=== PATIENT | male | born 1975 | race Caucasian/White ===

== ENCOUNTER 2021-03-04 22:48 | Inpatient (IN) | payer BC ==
[~2021-03-04] VITALS: Ht 177.8 cm; Wt 65.8 kg
[2021-03-04] MEDS ORDERED: LORAZEPAM 2 MG/1 ML VIAL ONE ×2 (23:11→23:43)
[2021-03-04] MEDS ORDERED: IV NORMAL SALINE 1000 ML BAG IV ONE (23:15)
[2021-03-04] MEDS ORDERED: LORAZEPAM 2 MG/1 ML VIAL IV ONE ×2 (23:15→23:30)
[2021-03-04] MEDS ORDERED: NEOMY/BACITRA/POLYMYXIN B OINT UD PACKET TP ONE (23:24)
[2021-03-05] MEDS ORDERED: LORAZEPAM 2 MG/1 ML VIAL IV ONE
[2021-03-05] MEDS ORDERED: IV NORMAL SALINE 1000 ML BAG IV ONE
[2021-03-05] MEDS ORDERED: LORAZEPAM 2 MG/1 ML VIAL ONE (00:18)
[2021-03-05] MEDS ORDERED: PANTOPRAZOLE SODIUM 40 MG VIAL IV ONE (00:45)
[2021-03-05] MEDS ORDERED: PANTOPRAZOLE SODIUM 40 MG VIAL ONE (01:14)
[2021-03-05] MEDS ORDERED: ONDANSETRON 4 MG/2 ML VIAL ONE (01:14)
[2021-03-05] MEDS ORDERED: ONDANSETRON 4 MG/2 ML VIAL IV ONE (01:15)
[2021-03-05 01:43] LABS: CREATININE 2.5 mg/dL (0.6-1.3)
[2021-03-05 01:51] LABS: BILIRUBIN,DIRECT 0.2 mg/dL (0.0-0.2); BILIRUBIN,TOTAL 0.7 mg/dL (0.2-1.0); TOTAL PROTEIN, SERUM 5.2 g/dL (6.4-8.2)
[2021-03-05 01:53] LABS: POTASSIUM 2.2 mmol/L (3.5-5.1)
[2021-03-05 01:54] LABS: ETHANOL < 3 MG/DL (0-0)
[2021-03-05] MEDS ORDERED: POTASSIUM CHLORIDE 100 ML ONE (02:04)
[2021-03-05] MEDS: POTASSIUM CHLORIDE 50 ML IV SCH ×6 (02:05→23:37)
[2021-03-05 03:12] LABS: HEMATOCRIT 21.6 % (36.7-47.1); MEAN CORPUSCULAR HEMOGLOBIN 31.3 uug (23.8-33.4)
[2021-03-05 03:13] LABS: MEAN CORPUSCULAR VOLUME 92.6 fL (73.0-96.2); PLATELET COUNT (AUTO) 84 K/uL (152-348)
[2021-03-05] MEDS ORDERED: NEOMY/BACITRA/POLYMYXIN B OINT UD PACKET TP ONE (04:30)
[2021-03-05] MEDS ORDERED: ONDANSETRON 4 MG/2 ML VIAL IV PRN (04:30)
[2021-03-05] MEDS ORDERED: ACETAMINOPHEN 325 MG TABLET PO PRN (04:30)
[2021-03-05] MEDS ORDERED: Z GUARD REMEDY PASTE 57 GM TUBE TOP PRN (04:30)
[2021-03-05 05:21] LABS: EOSINOPHILS % (MANUAL) 1 % (0-8); LYMPHOCYTES % (MANUAL) 9 % (20-40); MONOCYTES % (MANUAL) 13 % (2-10); NEUTROPHILS % (MANUAL) 77 % (42-75)
[2021-03-05] MEDS: IV NS 1000 ML 1,000 ML IV PRN ×2 (07:25→16:24)
[2021-03-05 07:57] VITALS: BP 96/63
[2021-03-05] MEDS: PANTOPRAZOLE SODIUM 40 MG VIAL IV SCH (08:58)
[2021-03-05 12:00] VITALS: BP 96/63
[2021-03-05 16:00] VITALS: BP 101/63
[2021-03-05 20:00] VITALS: BP 117/70
[2021-03-05 20:56] LABS: HEMATOCRIT 20.2 % (36.7-47.1)
[2021-03-05 22:00] VITALS: BP 93/53
[2021-03-05 22:15] VITALS: BP 111/64
[2021-03-05] MEDS: LORAZEPAM 2 MG/1 ML VIAL IV PRN (23:29)
[2021-03-06] VITALS: BP 95/62
[2021-03-06 01:00] VITALS: BP 92/56
[2021-03-06] MEDS: POTASSIUM CHLORIDE 50 ML IV SCH ×8 (01:21→18:44)
[2021-03-06] MEDS: IV NS 1000 ML 1,000 ML IV PRN (03:05)
[2021-03-06 04:00] VITALS: BP 105/78
[2021-03-06 05:28] LABS: HEMATOCRIT 22.7 % (36.7-47.1); MEAN CORPUSCULAR HEMOGLOBIN 31.2 uug (23.8-33.4); PLATELET COUNT (AUTO) 101 K/uL (152-348)
[2021-03-06 05:40] LABS: POTASSIUM 3.1 mmol/L (3.5-5.1)
[2021-03-06 05:53] LABS: THYROID STIMULATING HORMONE 0.666 mIU/mL (0.358-3.740)
[2021-03-06 05:56] LABS: MAGNESIUM 2.6 mg/dL (1.8-2.4); PHOSPHOROUS 1.4 mg/dL (2.5-4.9)
[2021-03-06 07:37] LABS: BAND % (MANUAL) 2 % (0-10); LYMPHOCYTES % (MANUAL) 14 % (20-40); MONOCYTES % (MANUAL) 24 % (2-10); NEUTROPHILS % (MANUAL) 60 % (42-75)
[2021-03-06] MEDS: PANTOPRAZOLE SODIUM 40 MG VIAL IV SCH ×2 (08:36→20:54)
[2021-03-06 11:59] VITALS: BP 94/64
[2021-03-06] MEDS: CEFTRIAXONE 1 G in IV DEXTROSE 5% 50 ML IV SCH (12:04)
[2021-03-06] MEDS ORDERED: IV NORMAL SALINE 500 ML IV ONE (12:15)
[2021-03-06] MEDS: POTASSIUM PHOSPHATE MM 7.5 MMOL in IV NORMAL SALINE 97.5 ML IV SCH ×2 (13:30→20:12)
[2021-03-06 16:06] VITALS: BP 97/62
[2021-03-06 20:25] VITALS: BP 101/75
[2021-03-07] VITALS (9 sets, daily range): BP systolic 84–103; BP diastolic 44–67
[2021-03-07] MEDS: LORAZEPAM 2 MG/1 ML VIAL IV PRN (02:05)
[2021-03-07] MEDS: IV NS 1000 ML 1,000 ML IV PRN ×2 (02:05→20:22)
[2021-03-07 06:24] LABS: HEMATOCRIT 23.3 % (36.7-47.1); MEAN CORPUSCULAR HEMOGLOBIN 31.1 uug (23.8-33.4); MEAN CORPUSCULAR VOLUME 94.8 fL (73.0-96.2); PLATELET COUNT (AUTO) 176 K/uL (152-348)
[2021-03-07 06:48] LABS: MAGNESIUM 1.9 mg/dL (1.8-2.4); PHOSPHOROUS 1.6 mg/dL (2.5-4.9)
[2021-03-07 07:26] LABS: BILIRUBIN,TOTAL 0.6 mg/dL (0.2-1.0); CREATININE 0.8 mg/dL (0.6-1.3)
[2021-03-07 07:58] LABS: POTASSIUM 2.4 mmol/L (3.5-5.1)
[2021-03-07] MEDS ORDERED: POTASSIUM CHLORIDE 50 ML IV SCH (09:45)
[2021-03-07] MEDS: PANTOPRAZOLE SODIUM 40 MG VIAL IV SCH ×2 (10:12→20:22)
[2021-03-07 13:59] LABS: BAND % (MANUAL) 6 % (0-10); EOSINOPHILS % (MANUAL) 1 % (0-8); LYMPHOCYTES % (MANUAL) 17 % (20-40); MONOCYTES % (MANUAL) 25 % (2-10); NEUTROPHILS % (MANUAL) 51 % (42-75)
[2021-03-07] MEDS: POTASSIUM PHOSPHATE MM 7.5 MMOL in IV NORMAL SALINE 97.5 ML IV SCH ×2 (14:22→16:59)
[2021-03-07] MEDS: CEFTRIAXONE 1 G in IV DEXTROSE 5% 50 ML IV SCH (14:38)
[2021-03-07] MEDS ORDERED: POTASSIUM CHLORIDE 20 MEQ TAB.PRT.SR PO ONE (15:00)
[2021-03-07] MEDS ORDERED: POTASSIUM PHOSPHATE MM 7.5 MMOL in IV NORMAL SALINE 97.5 ML IV SCH (20:00)
[2021-03-07] MEDS ORDERED: IV NORMAL SALINE 500 ML IV ONE ×2 (20:45→21:30)
[2021-03-08 04:25] VITALS: BP 93/57
[2021-03-08] MEDS: IV NS 1000 ML 1,000 ML IV PRN (04:56)
[2021-03-08 06:40] LABS: HEMATOCRIT 21.6 % (36.7-47.1); MEAN CORPUSCULAR HEMOGLOBIN 31.6 uug (23.8-33.4); MEAN CORPUSCULAR VOLUME 93.9 fL (73.0-96.2); PLATELET COUNT (AUTO) 233 K/uL (152-348)
[2021-03-08 06:46] LABS: ALANINE AMINOTRANSFERASE 24 U/L (16-63); ALKALINE PHOSPHATASE 46 U/L (50-136); ASPARTATE AMINOTRANSFERASE 21 U/L (15-37); BILIRUBIN,TOTAL 0.3 mg/dL (0.2-1.0); CARBON DIOXIDE 30 mmol/L (21-32); CHLORIDE 101 mmol/L (98-107); CREATININE 0.6 mg/dL (0.6-1.3); GLUCOSE 101 mg/dL (74-106); TOTAL PROTEIN, SERUM 4.6 g/dL (6.4-8.2); UREA NITROGEN, BLOOD 6 mg/dL (7-18)
[2021-03-08 06:53] LABS: POTASSIUM 2.6 mmol/L (3.5-5.1)
[2021-03-08 08:11] LABS: BAND % (MANUAL) 7 % (0-10); EOSINOPHILS % (MANUAL) 1 % (0-8); LYMPHOCYTES % (MANUAL) 22 % (20-40); MONOCYTES % (MANUAL) 28 % (2-10); NEUTROPHILS % (MANUAL) 42 % (42-75)
[2021-03-08] MEDS: PANTOPRAZOLE SODIUM 40 MG VIAL IV SCH ×2 (09:43→21:29)
[2021-03-08] MEDS ORDERED: SILVER NITRATE APPLICATOR STICK EACH TP PRN (10:30)
[2021-03-08] MEDS ORDERED: MAGNESIUM SULFATE/D5W 100 ML IV SCH ×2 (11:30→14:15)
[2021-03-08] MEDS: CEFTRIAXONE 1 G in IV DEXTROSE 5% 50 ML IV SCH (11:57)
[2021-03-08 12:00] VITALS: BP 95/63
[2021-03-08] MEDS: POTASSIUM CHLORIDE 50 ML IV SCH ×6 (13:40→18:31)
[2021-03-08] MEDS: IV 0.9% SODIUM CHLORID+ 20 KCL 1,000 ML IV PRN (15:09)
[2021-03-08 16:00] VITALS: BP 92/67
[2021-03-08 20:34] VITALS: BP 97/64
[2021-03-09 04:32] VITALS: BP 105/70
[2021-03-09 05:55] LABS: HEMATOCRIT 23.7 % (36.7-47.1); MEAN CORPUSCULAR HEMOGLOBIN 31.4 uug (23.8-33.4); MEAN CORPUSCULAR VOLUME 93.9 fL (73.0-96.2); PLATELET COUNT (AUTO) 305 K/uL (152-348)
[2021-03-09 06:28] LABS: BILIRUBIN,TOTAL 0.3 mg/dL (0.2-1.0); CREATININE 0.7 mg/dL (0.6-1.3); POTASSIUM 4.2 mmol/L (3.5-5.1)
[2021-03-09] MEDS: IV 0.9% SODIUM CHLORID+ 20 KCL 1,000 ML IV PRN (07:14)
[2021-03-09] MEDS: PANTOPRAZOLE SODIUM 40 MG VIAL IV SCH (08:02)
[2021-03-09] MEDS: CEFTRIAXONE 1 G in IV DEXTROSE 5% 50 ML IV SCH (10:17)
[2021-03-09 11:31] VITALS: BP 122/82
[2021-03-09] MEDS ORDERED: THIA100T13 PO (13:21)
[2021-03-09] MEDS ORDERED: PANT40TA2 PO (13:21)
[2021-03-09 14:46] LABS: EOSINOPHILS % (MANUAL) 2 % (0-8); LYMPHOCYTES % (MANUAL) 25 % (20-40); MONOCYTES % (MANUAL) 23 % (2-10); NEUTROPHILS % (MANUAL) 50 % (42-75)
== END 2021-03-09 14:45 | disposition home health service (06) | DRG 853 ==
LOC: ER 22:52 → CCU 03-05 06:35 → EDBD 03-05 06:35 → TELE3 03-06 07:50 → MEDSURG3 03-07 11:05
PROVIDERS: ADMIT Student in an Organized Health Care Education/Training Program; ATTEND Nurse Practitioner Acute Care
PROC: 30233N1 Transfusion of Nonautologous Red Blood Cells into Peripheral Vein, Percutaneous Approach (ICD-10-PCS; principal; 2021-03-05)
PROC: 05H633Z Insertion of Infusion Device into Left Subclavian Vein, Percutaneous Approach (ICD-10-PCS; 2021-03-06)
PROC: B547ZZA Ultrasonography of Left Subclavian Vein, Guidance (ICD-10-PCS; 2021-03-06)
PROC: 0JBG0ZZ Excision of Right Lower Arm Subcutaneous Tissue and Fascia, Open Approach (ICD-10-PCS; 2021-03-08)
DX: A41.9 Sepsis, unspecified organism (principal); N17.0 Acute kidney failure with tubular necrosis; J15.6 Pneumonia due to other Gram-negative bacteria; E44.0 Moderate protein-calorie malnutrition; E87.1 Hypo-osmolality and hyponatremia; F10.239 Alcohol dependence with withdrawal, unspecified; K92.2 Gastrointestinal hemorrhage, unspecified; G40.89 Other seizures; Y90.0 Blood alcohol level of less than 20 mg/100 ml; D69.6 Thrombocytopenia, unspecified; E88.09 Other disorders of plasma-protein metabolism, not elsewhere classified; E87.6 Hypokalemia; S81.001A Unspecified open wound, right knee, initial encounter; S51.001A Unspecified open wound of right elbow, initial encounter; W10.9XXA Fall (on) (from) unspecified stairs and steps, initial encounter; Y93.9 Activity, unspecified; S00.01XA Abrasion of scalp, initial encounter; S60.041A Contusion of right ring finger without damage to nail, initial encounter; Y92.009 Unspecified place in unspecified non-institutional (private) residence as the place of occurrence of the external cause; D50.0 Iron deficiency anemia secondary to blood loss (chronic); Z20.822 Contact with and (suspected) exposure to COVID-19; G31.2 Degeneration of nervous system due to alcohol
CPT/HCPCS: 36415; 70030-TC; 70450; 71045; 72125; 83550; 83690; 83735; 84100; 84132; 84443; 85018; 85025; 86850; 86900; 86901; 86920; 93005; 97161; A4217; A6209; C9113; G0378; G0480; J0696; J2060; J2405; J3475; J3480; J3490; J7030; J7040; J7050; J7060; P9016; P9021